=== PATIENT | male | born 1975 | race American Indian/Alaskan Native ===

== ENCOUNTER 2019-10-28 21:08 | Emergency (ER) | payer SELFPAY ==
--- NOTE | 2019-10-28 21:54 | Event Note ---
ED Screening Note Date of service: 10/28/19 Time: :22 ED Screening Note: 44 y o male presents with upper abd pain upper with beach and dizziness elev BP This initial assessment/diagnostic orders/clinical plan/treatment(s) is/are subject to change based on patients health status, clinical progression and re- assessment by fellow clinical providers in the ED. Further treatment and workup at subsequent clinical providers discretion. Patient/guardian urged not to elope from the ED as their condition may be serious if not clinically assessed and managed. Initial orders include: labs main side eval
--- NOTE | 2019-10-28 22:09 | XRay Report ---
CHEST 1 VIEW INDICATION / CLINICAL INFORMATION: MAIN: Chest Pain FOR 3 DAYS. COMPARISON: None available. FINDINGS: SUPPORT DEVICES: None. HEART / MEDIASTINUM: No significant abnormality. LUNGS / PLEURA: No significant pulmonary or pleural abnormality. No pneumothorax. ADDITIONAL FINDINGS: No significant additional findings. IMPRESSION: 1. No acute findings. Signer Name: Tim Power MD Signed: 10/28/2019 10:04 PM Workstation Name: [id number]
[2019-10-29] MEDS ORDERED: AZITHROMYCIN 1 GM ORAL PWDR PACKET PO ONE (01:45)
[2019-10-29] MEDS ORDERED: LIDOCAINE-MPF (1%) 10 MG/1 ML VIAL 5 ML INFILTRATI ONE (01:45)
[2019-10-29] MEDS ORDERED: amLODIPine 5 MG TAB PO ONE (01:54)
[2019-10-29 02:22] VITALS: BP 174/117
--- NOTE | 2019-10-29 03:12 | Emergency Department Report ---
HPI - General Chief Complaint: Abdominal Pain Time Seen by Provider: 10/29/19 01:33 - HPI HPI: 44-year-old -[place] male presents to the emergency department with a complaint of a 2 day history of burning with urination and purulent discharge from the penis. The patient says that he was given gonorrhea. The patient says that he recently reconciled with the mother of his children and they had sexual intercourse. She called him earlier today while at work and told him that she had tested positive for gonorrhea. The patient presents with very elevated blood pressure. He does have a history of hypertension and did not take his medication yet today, but he also says that he is very upset regarding what has transpired. The patient denies any penile or genital lesions, rash, ulcer, or discoloration. There is some MSE and triage notes that state the patient is here for abdominal pain, nausea, vomiting, headache and dizziness. However the patient is only here for the STD and said all of that started as he did not feel comfortable carley teto about his symptoms until he was seen by the physician. The patient even allowed for a chest x-ray to be done before giving the real reason for his visit. ED Past Medical Hx - Past Medical History Previous Medical History?: Yes Hx Hypertension: Yes - Social History Smoking Status: Never Smoker Substance Use Type: None ED Review of Systems ROS: Stated complaint: ABD PAIN Other details as noted in HPI Comment: All other systems reviewed and negative Constitutional: denies: chills, fever Respiratory: denies: cough, shortness of breath Cardiovascular: denies: chest pain, palpitations Gastrointestinal: denies: abdominal pain, vomiting Genitourinary: dysuria, discharge Musculoskeletal: denies: back pain Skin: denies: rash, lesions Neurological: denies: headache, weakness Physical Exam - Physical Exam Vital Signs: Vital Signs 10/28/19 10/28/19 10/29/19 21:14 21:44 02:22 Temperature 98.2 F Pulse Rate 82 70 Respiratory 20 Rate Blood Pressure 190/132 174/117 Blood Pressure 224/126 174/117 [Left] O2 Sat by Pulse 98 Oximetry Physical Exam: GENERAL: The patient is well-developed well-nourished. HEENT: Normocephalic. Atraumatic. Patient has moist mucous membranes. EYES: Extraocular motions are intact. NECK: Supple. Trachea is midline. ABDOMEN: There is no abdominal distention. SKIN: Skin is warm and dry. NEURO: The patient is awake, alert, and oriented. The patient is cooperative. The patient has normal speech. MUSCULOSKELETAL: There is no tenderness or deformity. There is no evidence of acute injury. : Deferred ED Course Vital Signs 10/28/19 10/28/19 10/29/19 21:14 21:44 02:22 Temperature 98.2 F Pulse Rate 82 70 Respiratory 20 Rate Blood Pressure 190/132 174/117 Blood Pressure 224/126 174/117 [Left] O2 Sat by Pulse 98 Oximetry ED Medical Decision Making - Medical Decision Making This patient ultimately presented for a 2 day history of some purulent penile discharge that is secondary to gonorrhea. Patient was informed by his most recent sexual partner that she had tested positive for gonorrhea. Patient's blood pressure was quite elevated when he first got here. He has not yet taken his blood pressure medications today and the patient is visibly upset and angry about the STD and the fact that it occurred from his significant other. On top of all this, the patient has just finished a 13 hour shift at work. He was given a dose of Norvasc and his blood pressure came down to a more reasonable level. The patient was given Rocephin and azithromycin to treat the gonorrhea and empirically treat chlamydia. We discussed staying away from foods that are high in salt caffeinated products, taking his blood pressure medication and keeping a BP log. He also will avoid any sexual intercourse or contact for at least 1 week after getting the medications here today. He will return to ER with any worsening of his symptoms or any acute distress. Critical Care Time: No Critical care attestation.: If time is entered above; I have spent that time in minutes in the direct care of this critically ill patient, excluding procedure time. ED Disposition Clinical Impression: Urethritis Hypertension Qualifiers: Hypertension type: essential hypertension Qualified Code(s): I10 - Essential (primary) hypertension Disposition: -01 TO HOME OR SELFCARE Is pt being admited?: No Condition: Stable Instructions: Gonococcal Urethritis (ED), Hypertension (ED) Additional Instructions: Please follow up with a primary care physician in the next few days. Take your blood pressure medication as prescribed. Try and stay away from foods that are high in salt and caffeinated products. Keep a blood pressure log. Please avoid any sexual contact for at least one week after receiving the antibiotic treatment today. Return to the emergency Department with any worsening of your symptoms or any acute distress. Referrals: PRIMARY CARE, [Primary Care Provider] - 2-3 Days Forms: STI Treatment and Prevention Time of Disposition: 03:14
== END 2019-10-29 03:30 | disposition home or self-care (01) ==
LOC: ED 21:08
DX: N34.2 Other urethritis (principal); I10 Essential (primary) hypertension
CPT/HCPCS: 71045; 96372; 99284; J0696